=== PATIENT | male | born 2000 | race Caucasian/White ===

== ENCOUNTER 2024-06-19 19:58 | Observation (INO) | payer OTHER ==
[~2024-06-19 19:58] MED LIST: Iopamidol 300 61% 100 ML VIAL FS ONE
[2024-06-19] MEDS ORDERED: Morphine 4 MG/ML VIAL ONE (21:01)
[2024-06-19] MEDS ORDERED: Ondansetron PF 4 MG/2 ML Vial ONE (21:01)
[2024-06-19 21:35] LABS: #Basophils 0.03 10x3/uL (0.0-0.2); #Eosinophils Less than 0.03 10x3/uL (0.0-0.5); #Monocytes 0.49 10x3/uL (0.0-1.1); #Neutrophils 7.57 10x3/uL (1.5-8.4); %Basophils 0.3 % (0.0-2.0); %Eosinophils 0.2 % (0.0-6.0); %Lymphocytes 7.8 % (18.0-47.0); %Monocytes 5.6 % (0.0-10.0); Hemoglobin 15.9 g/dL (13.5-17.5); Mean Corpuscular HGB CONC 34.6 g/dL (32.0-36.0); Mean Corpuscular Hemoglobin 28.9 pg (27.0-33.0); Mean Corpuscular Volume 83.6 fL (81.2-95.1); Mean Platelet Volume 10.2 fL (7.4-10.4); Platelet Count 222 10x3/uL (150-450); RBC Distribution Width 12.3 % (11.5-14.5); White Blood Cell (WBC) Count 8.81 10x3/uL (3.5-10.5)
[2024-06-19 21:53] LABS: ALT (SGPT) 26 U/L (Less than 45); AST (SGOT) 27 U/L (11-34); Alkaline Phosphatase 58 U/L (40-110); Anion Gap 19 mmol/L (10-20); BUN (Urea Nitrogen) 16 mg/dL (8.9-20.6); Calc. Creatinine Clearance 0 mL/min (70-130); Calcium 9.7 mg/dL (7.8-10.44); Carbon Dioxide 22 mmol/L (22-29); Chloride 98 mmol/L (98-107); Estimated GFR 92; Glucose 95 mg/dL (70-105); Lipase 9 U/L (8-78); Potassium 4.5 mmol/L (3.5-5.1)
[2024-06-19 22:13] LABS: Albumin 4.7 g/dL (3.1-4.5); Bilirubin, Total 1.3 mg/dL (0.3-1.2); Globulin 3.8 g/dL (2.4-3.5); Protein, Total 8.5 g/dL (6.0-8.3); Sodium 134 mmol/L (136-145)
[2024-06-20] MEDS ORDERED: Piperacillin/Tazobactam 3.375 GM VIAL ONE ×2 (00:38→09:18)
[2024-06-20] MEDS ORDERED: Morphine 4 MG/ML VIAL ONE (04:20)
[2024-06-20] MEDS ORDERED: Ketorolac Tromethamine 30 MG (1 mL) VIAL ONE ×2 (07:19→10:36)
[2024-06-20 08:45] VITALS: BP 126/73; TEMP 100.3
[2024-06-20 09:09] VITALS: BMI 21.4
[2024-06-20] MEDS ORDERED: Bupivacaine HCl 0.5%/Epinephrine 1:200,000/PF 30 ml Vial ONE (09:19)
[2024-06-20] MEDS ORDERED: Lidocaine 2% PF 5 ML VIAL ONE (10:36)
[2024-06-20] MEDS ORDERED: Rocuronium Bromide 10 MG/ML (10ML VIAL) ONE (10:36)
[2024-06-20] MEDS ORDERED: fentaNYL 50 mcg/mL 1 mL Vial ONE ×2 (10:36→11:33)
[2024-06-20] MEDS ORDERED: PROPOFOL 20 ML ONE (10:36)
[2024-06-20] MEDS ORDERED: Dexamethasone 4 mg/ml Vial ONE (10:41)
[2024-06-20] MEDS ORDERED: Ondansetron PF 4 MG/2 ML Vial ONE ×2 (10:41→11:10)
[2024-06-20] MEDS ORDERED: ePHEDrine Sulfate 50 MG/10 ML VIAL ONE (11:07)
[2024-06-20] MEDS ORDERED: SUGAMMADEX SODIUM 200 MG/2 ML VIAL ONE (11:10)
[2024-06-20] MEDS ORDERED: Acetaminophen 325 MG TAB PO PRN (11:49)
[2024-06-20] MEDS ORDERED: Ondansetron PF 4 MG/2 ML Vial IVP PRN (11:49)
[2024-06-20] MEDS ORDERED: Morphine 2 MG/ML VIAL SLOW IVP PRN (11:49)
[2024-06-20] MEDS ORDERED: HYDROcodone/Acetaminophen 10/325 mg Tablet PO PRN (11:49)
[2024-06-20] MEDS: Piperacillin/Tazobactam 3.375 GM in Sodium Chloride 0.9% 100 ML IVPB SCH (13:30)
[2024-06-20] MEDS: Lactated Ringer's 1,000 ML IV SCH (13:51)
[2024-06-20] MEDS: Ketorolac Tromethamine 30 MG (1 mL) VIAL IVP SCH (17:15)
[2024-06-20] MEDS: FLU (Fluarix Triv) TS24-25(6MOS UP)/PF 45 MCG/0.5 ML Syringe IM ONE (17:19)
== END 2024-06-20 18:50 | disposition home or self-care (01) ==
LOC: CSHERS 19:58 → CSHERHOLD 22:39 → CSHTELE 06-20 08:00
PROVIDERS: ADMIT Surgery; ATTEND Surgery
PROC: 0DTJ4ZZ Resection of Appendix, Percutaneous Endoscopic Approach (ICD-10-PCS; principal; 2024-06-20)
DX: K35.80 Unspecified acute appendicitis (principal); F90.9 Attention-deficit hyperactivity disorder, unspecified type; Z79.2 Long term (current) use of antibiotics; Z79.899 Other long term (current) drug therapy
CPT/HCPCS: 74177; 80053; 83690; 85025; 88304; 96374; 96375; 96376; A4649; C1776; G0378; J1100; J1885; J2270; J2405; J2543; J2704; J3010; J7120; Q9967